=== PATIENT | female | born 1960 | race Caucasian/White ===

== ENCOUNTER → 2020-11-02 | Outpatient (CLI) | payer OTHER ==
[~2020-11-02] MED LIST: NO HOME MEDICATIONS
== END | disposition still patient (30) ==
LOC: MC.RAD 10-10 07:30
DX: Z12.31 Encounter for screening mammogram for malignant neoplasm of breast (principal)

== ENCOUNTER → 2024-07-13 | Outpatient (CLI) | payer OTHER ==
[~2024-07-13] MED LIST changes: +Iohexol 300 - 100 ML VIAL IV ONE; +NS 100 ML IV SCH
== END ==
LOC: COL.RAD 13:53
DX: N28.1 Cyst of kidney, acquired (principal); K76.89 Other specified diseases of liver
CPT/HCPCS: Q9967

== ENCOUNTER → 2024-07-28 | Outpatient (CLI) | payer OTHER ==
[~2024-07-28] MED LIST changes: -Iohexol 300 - 100 ML VIAL IV ONE; -NS 100 ML IV SCH
== END ==
LOC: MC.RAD 08:02
DX: Z12.31 Encounter for screening mammogram for malignant neoplasm of breast (principal)